=== PATIENT | male | born 1995 | race Caucasian/White ===

== ENCOUNTER 2016-09-19 23:12 | Emergency (ER) | payer SELFPAY ==
[~2016-09-19] VITALS: Ht 185.4 cm; Wt 85.0 kg
[2016-09-19 23:16] VITALS: Ht 185.4 cm; Wt 85.0 kg
== END 2016-09-20 01:05 | disposition left against medical advice (07) ==
LOC: E/R 23:12
DX: Z53.21 Procedure and treatment not carried out due to patient leaving prior to being seen by health care provider (principal)